=== PATIENT | female | born 1955 | race Caucasian/White ===

== ENCOUNTER 2019-08-23 07:50 | Inpatient (IN) | payer OTHER ==
[2019-08-13 11:12] LABS: BASOPHILS # (AUTO) 0.1 X10'3 (0-0.2); BASOPHILS % (AUTO) 0.8 % (0-1); EOSINOPHILS # (AUTO) 0.1 X10'3 (0-0.9); EOSINOPHILS % (AUTO) 1.2 % (0-6); LYMPHOCYTES # (AUTO) 2.6 X10'3 (1.1-4.8); LYMPHOCYTES % (AUTO) 27.8 % (21-51); MEAN CORPUSCULAR HEMOGLOBIN 28.2 PG (27.0-31.0); MEAN CORPUSCULAR HGB CONC 33.4 g/dL (33.0-36.5); MEAN CORPUSCULAR VOLUME 84.6 FL (78-98); MEAN PLATELET VOLUME 7.9 FL (7.4-10.4); MONOCYTES # (AUTO) 0.4 X10'3 (0-0.9); MONOCYTES % (AUTO) 4.5 % (2-12); NEUTROPHILS % (AUTO) 65.7 % (42-75); PRE OP HEMATOCRIT 41.8 % (35.0-45.0); PRE OP PLATELET COUNT 363 X10'3 (140-440); RED BLOOD COUNT 4.94 X10'6 (4.20-5.60); RED CELL DISTRIBUTION WIDTH 16.3 % (11.5-14.5)
[2019-08-13 11:17] LABS: HEMOGLOBIN A1C 6.7 % (4.5-6.2)
[2019-08-13 11:23] LABS: PRE OP INR 0.9 INR
[2019-08-13 11:24] LABS: ALBUMIN 3.7 G/DL (3.4-5.0); ALBUMIN/GLOBULIN RATIO 0.9 (1.1-1.5); ALKALINE PHOSPHATASE 140 IU/L (46-116); BLOOD UREA NITROGEN 20 MG/DL (7-18); BUN/CREATININE RATIO 22.2 (6.6-38.0); CALCIUM 9.2 MG/DL (8.5-10.1); CHLORIDE 103 MMOL/L (99-107); PRE OP ALT 27 U/L (30-65); PRE OP ANION GAP 9 (8-16); PRE OP AST 22 U/L (10-37); PRE OP BILIRUB, TOTAL 0.4 MG/DL (0.0-1.0); PRE OP GLUCOSE 109 MG/DL (70-104); PRE OP POTASSIUM 4.7 MMOL/L (3.4-5.1); PRE OP SODIUM 139 MMOL/L (135-145); TOTAL CARBON DIOXIDE 27.5 MMOL/L (24-32); eGFR 63 ML/MIN
[2019-08-23] VITALS (24 sets, daily range): BP systolic 83–144; BP diastolic 38–97
[~2019-08-23] VITALS: Ht 152.4 cm; Wt 77.2 kg
[~2019-08-23 07:50] MED LIST: ACET-812 PO; AREDS PO; EZET10TA21 PO; FEXO180T94 PO; GABA-534 PO; IBUP-24 PO; IBUP1TAB11 PO; LISI40TA4 PO; MEGA RED PO; METF500T20 PO; cefazolin/dext.iso 2gm/50ml 50 ML IV ONE; famotidine 20mg tablet PO ONE; ringers solution, lacted 1,000 ML IV SCH; vancomycin inj 1,500 MG in normal saline 300ml IV soln IV ONE
[2019-08-23] MEDS ORDERED: LIDOcaine 1% (10mg/ml) 2ml vial ONE (08:13)
[2019-08-23] MEDS ORDERED: BUPIVAcaine/PF 2.5 mg/ml (0.25%) 30ml vial ONE (08:30)
[2019-08-23] MEDS ORDERED: meperidine/PF 25mg/ml syringe IV ONE (09:00)
[2019-08-23] MEDS ORDERED: sevoflurane 250ml liquid IH ONE (11:32)
[2019-08-23] MEDS ORDERED: midazolam 2 mg/2 ml injection ONE (11:33)
[2019-08-23] MEDS ORDERED: fentaNYL /PF 50mcg/ml 5ml ampule ONE (11:36)
[2019-08-23] MEDS ORDERED: ringers solution, lacted 1,000 ML IV SCH (12:41)
[2019-08-23] MEDS ORDERED: ketorolac trometh. 30mg/ml inj. IV ONE (12:45)
[2019-08-23] MEDS ORDERED: HYDROmorphone inj. 0.5 MG/0.5 ML DISP.SYRIN IV PRN (12:45)
[2019-08-23] MEDS ORDERED: meperidine/PF 25mg/ml syringe IV PRN ×2 (12:45)
[2019-08-23] MEDS ORDERED: ondansetron/PF 4mg/2ml inj IV PRN ×2 (12:45→14:05)
[2019-08-23] MEDS ORDERED: propofol inj 20 ML IV ONE (13:34)
[2019-08-23] MEDS ORDERED: acetaminophen 1,000mg/100ml IV 100 ML IV ONE (13:34)
[2019-08-23] MEDS ORDERED: fentaNYL/PF 50MCG/1 ML 2ML syringe ONE (13:35)
[2019-08-23] MEDS ORDERED: acetaminophen 325mg tablet PO PRN (14:05)
[2019-08-23] MEDS ORDERED: magnesium hydroxide 30ml (MOM) UD suspension PO PRN (14:05)
[2019-08-23] MEDS ORDERED: gabapentin 400mg capsule PO PRN (14:05)
[2019-08-23] MEDS ORDERED: diphenhydrAMINE 25mg capsule PO PRN ×2 (14:05)
[2019-08-23] MEDS ORDERED: bisacodyl 10mg suppository rectal RC PRN (14:05)
--- NOTE | 2019-08-23 14:05 | NUR ---
Received from OR via BED, accompanied by Anesthesiologist DR CASE and report given by Anesthesiologist. PT DROWSY, LEFT SHOULDER W/SHANDRA CARR COVERING INCISION CDI, ARM IN ABDUCTION SLING. Addendum: 08/23/19 at 1436 by Opal Awan RN Amended: Links added.
[2019-08-23] MEDS ORDERED: dextrose 50%-water 50ml dispensing syringe IV PRN ×2 (14:10)
[2019-08-23] MEDS ORDERED: glucagon, human recombinant 1mg kit SUBCUT PRN (14:10)
[2019-08-23] MEDS ORDERED: dextrose ORAL solution 15 GM/59 ML bottle PO PRN ×2 (14:10)
[2019-08-23] MEDS ORDERED: insulin Lispro (HumaLOG) vial - multi-dose SQ SCH (14:10)
[2019-08-23] MEDS ORDERED: MESSAGE TO PHARMACY PO ONE (14:10)
[2019-08-23] MEDS ORDERED: traMADol 50MG tablet PO PRN (14:10)
[2019-08-23] MEDS: meperidine/PF 25mg/ml syringe IV PRN ×3 (14:22→14:45)
[2019-08-23] MEDS ORDERED: HYDROcodone/acetaminophen 10/325mg tab PO PRN (14:55)
[2019-08-23] MEDS: HYDROmorphone inj. 0.5 MG/0.5 ML DISP.SYRIN IV PRN ×4 (15:03→15:46)
--- NOTE | 2019-08-23 15:15 | NUR ---
Received report from Opal QUINTERO in Recovery.
--- NOTE | 2019-08-23 16:05 | NUR ---
Report called to receiving nurse. Transferred via BED, 1 BAG OF Belongings SENT W/PT TO ROOM [facility]0B, KM RN AT BEDSIDE TO RECEIVE PT, BLL, CALL LIGHT GIVEN, SIDE RAILS UP X 2, PT APPEARS COMFORTABLE. Special Issues communicated to receiving nurse. YES. Addendum: 08/23/19 at 1612 by Opal Awan RN Amended: Links added.
[2019-08-23] MEDS: ceFAZolin 1GM/D5W- ADD-VANTAGE 50 ML IV SCH ×2 (16:18→23:57)
[2019-08-23] MEDS: HYDROcodone/acetaminophen 10/325mg tab PO PRN ×2 (17:43→22:54)
--- NOTE | 2019-08-23 18:21 | NUR ---
Problems reprioritized. Patient report given, questions answered & plan of care reviewed with Anna QUINTERO.
--- NOTE | 2019-08-23 18:30 | NUR ---
Received report from Kalpana QUINTERO pt is awake and alert on RA, trying to straighten arm a little bit and working on eating dinner.
[2019-08-23] MEDS ORDERED: vancomycin/NS 1 GM ADD-VANTAGE 250 ML IV SCH (20:00)
[2019-08-23] MEDS ORDERED: ibuprofen 200mg tablet PO SCH (21:00)
[2019-08-23] MEDS ORDERED: sennosides 8.6mg tablet PO SCH (21:00)
[2019-08-23] MEDS ORDERED: insulin glargine (Lantus) pen - multi-dose SQ SCH (21:00)
--- NOTE | 2019-08-23 23:08 | NUR ---
gave .5mg of dilaudid at 2105, medication did not save on computer
[2019-08-24] MEDS: HYDROmorphone inj. 0.5 MG/0.5 ML DISP.SYRIN IV PRN ×3 (01:06→09:35)
[2019-08-24] MEDS: potassium Cl 20mEq in NS 1,000 ML IV SCH ×2 (01:06→03:19)
[2019-08-24 01:57] VITALS: BP 104/71
[2019-08-24] MEDS: HYDROcodone/acetaminophen 10/325mg tab PO PRN ×2 (03:49→08:01)
[2019-08-24 06:00] VITALS: BP 105/65
--- NOTE | 2019-08-24 06:26 | NUR ---
Gave report to Kalpana QUINTERO pt is standing up next to bed trying to cover bottom, on RA in no apparent distress
--- NOTE | 2019-08-24 06:32 | NUR ---
Patient in room [facility]TH[facility] 4020. I have received report from Priya QUINTERO and had the opportunity to ask questions and assume patient care.
[2019-08-24 07:55] VITALS: BP 118/74
[2019-08-24] MEDS ORDERED: loratadine 10mg tablet PO SCH (08:00)
[2019-08-24] MEDS ORDERED: lisinopril 2.5mg tablet PO SCH (08:00)
[2019-08-24] MEDS ORDERED: ezetimibe 10mg tablet PO SCH (08:00)
[2019-08-24] MEDS ORDERED: oxyCODONE/APAP 10/325mg tablet PO PRN (08:40)
[2019-08-24] MEDS: ketorolac tromethamine 15mg/ml inj. IV SCH ×2 (09:35→15:23)
[2019-08-24 09:49] VITALS: BP 129/73
[2019-08-24] MEDS: oxyCODONE/APAP 10/325mg tablet PO PRN ×2 (12:04→15:46)
[2019-08-24 14:00] VITALS: BP 111/74
--- NOTE | 2019-08-24 17:15 | NUR ---
PATIENT STABLE FOR DC HOME TODAY WITH . ALL DISCHARGE INSTRUCTION AND PAIN MEDICATION (PERCOCET) GIVEN TO PATIENT. IV OUT AND ALL BELONGINGS SENT WITH PATIENT.
== END 2019-08-24 17:05 | disposition home or self-care (01) | DRG 502 ==
LOC: PAS 07:50 → ORTHO 4S 16:24
PROVIDERS: ADMIT Orthopaedic Surgery; ATTEND Orthopaedic Surgery
PROC: 0LS40ZZ Reposition Left Upper Arm Tendon, Open Approach (ICD-10-PCS; 2019-08-23)
PROC: 0LQ20ZZ Repair Left Shoulder Tendon, Open Approach (ICD-10-PCS; 2019-08-23)
PROC: 0PBB0ZZ Excision of Left Clavicle, Open Approach (ICD-10-PCS; 2019-08-23)
PROC: 0LM20ZZ Reattachment of Left Shoulder Tendon, Open Approach (ICD-10-PCS; principal; 2019-08-23 11:32)
DX: M19.012 Primary osteoarthritis, left shoulder (principal); M75.22 Bicipital tendinitis, left shoulder; E11.9 Type 2 diabetes mellitus without complications; E78.5 Hyperlipidemia, unspecified; Z96.611 Presence of right artificial shoulder joint; E66.9 Obesity, unspecified; I10 Essential (primary) hypertension; M75.102 Unspecified rotator cuff tear or rupture of left shoulder, not specified as traumatic; Z90.49 Acquired absence of other specified parts of digestive tract; Z88.6 Allergy status to analgesic agent; Z90.710 Acquired absence of both cervix and uterus; Z68.33 Body mass index [BMI] 33.0-33.9, adult
CPT/HCPCS: Z7506; Z7508; 36415; 80053; 82948; 83036; 85025; 85610; 85730; 93005; 97110; 97116; 97161; A4565; A4618; A6223; A6253; A6449; A7000; C1713; G0378; J0131; J0690; J1170; J1815; J1885; J2001; J2175; J2250; J2405; J2704; J3010; J3370; J3480; J3490; J7120; Q0163